=== PATIENT | male | born 1970 | race Caucasian/White ===

== ENCOUNTER 2024-06-29 08:43 | Emergency (ER) | payer BC, SELFPAY ==
[2024-06-29 09:02] VITALS: BP 113/78
--- NOTE | 2024-06-29 09:47 | ED.GENMED ---
History of Present Illness
General
Chief Complaint: Numbness
Source: patient
Exam Limitations: none
Time Seen by Provider: 06/29/24 09:38
History of Present Illness
History of Present Illness:
See MDM
Past History
Past History
ED Past Medical History: None
ED Past Surgical History: Cardiac
Social History
Tobacco: Non-smoker
Alcohol: Other
Living: with family
Phy Exam
Physical Exam
Physical Exam:
See MDM
Scores
NIH Stroke Score
Level of Consciousness: 0 - Alert
LOC Questions: 0-Answers both correctly
LOC Commands: 0-Performs both correctly
Best Horizontal Gaze: 0-Normal
Visual Moreno: 0=Normal, no visual loss
Facial Palsy: 0=Normal, symmetrical
Motor - Right Arm: 0=No drift 10 seconds
Motor - Left Arm: 0=No drift 10 seconds
Motor - Right Le-No drift 5 seconds
Motor - Left Le-No drift 5 seconds
Limb Ataxia: 0-Absent
Sensation: 0-Normal
Best Language: 0-No aphasia
Dysarthria: 0-Normal
Extinction and Inattention: 0-No abnormality
Total Score:: 0
Course
Orders/Labs/Results
Orders:
Orders
06/29/24 09:[address] [CT Head W/o Iv Contrast] Urgent
Comment:
Reason For Exam: unilateral numbness
06/29/24 09:46
Electrocardiogram (*1) Urgent
Reason for Study: Vertigo / Dizzy
EKG- Treatment ONCE
06/29/24 10:03
Complete Blood Count/With Diff Urgent
Comprehensive Metabolic Panel Urgent
Troponin I Urgent
Abnormal Lab Results
06/29/24
10:03
Glucose 102 H mg/dl
(70-99)
06/29/24 10:03
06/29/24 10:03
Vital Signs
Initial and Last Documented VS:
Initial Vital Signs
Temp Pulse Resp BP Pulse Ox
98.7 F 88 18 113/78 97
06/29/24 09:02 06/29/24 09:02 06/29/24 09:02 06/29/24 09:02 06/29/24 09:02
Last Documented Vital Signs
Temp Pulse Resp BP Pulse Ox
98.7 F 80 14 121/77 98
06/29/24 09:02 06/29/24 10:45 06/29/24 10:45 06/29/24 10:18 06/29/24 10:45
MDM/Problems Addressed
Differential Diagnosis Includes:
HPI and MDM Narrative:
53-year-old male presenting for evaluation of strokelike symptoms. Patient has been developing intermittent left arm tingling that is localized to his pinky and ring finger. He has been dealing with a headache for the past few days and got dizzy
today when he was walking the dog. Based on his symptoms, his PCP sent him in for evaluation of stroke. On my exam, his NIH is 0. He has normal finger-nose bilaterally. We discussed that his symptoms are less likely stroke related but he does
have strong family history of strokes. Patient does this the tingling in his hand. He states he developed intermittent tingling ever since his mitral valve repair 8 months ago. The numbness is likely related to his ulnar nerve given the
distribution. He has had an ulnar nerve release in his left elbow in the past
Physical exam
General: Well appearing and non-toxic
HEENT: protecting airway. EOMI
Neck: appears supple
CV: No evidence of cyanosis. Regular rate and rhythm
Resp: No accessory muscle use
Abd: Non-distended
Extremities: No deformities
Neuro: alert. No focal deficits. Normal finger-nose
Psych: Normal affect
Skin: Intact
Problems Addressed including Acute and Chronic Conditions affecting care:
1. Strokelike symptoms
Acuity: acute
Prognosis: stable
Details: Given his history, will obtain CT head. Will obtain basic blood work EKG. Patient does acknowledge that CT head does not necessarily rule out stroke. We discussed outpatient MRI if his workup is negative
Updates
Blood work and CT head negative. Patient feeling better after Toradol. We discussed continuing the workup as an outpatient and discussed follow-up with PCP as she may want to obtain MRI
Differential Diagnosis (but not limited to): TIA, migraine
Testing considered: CT angiogram
Drug therapy (if applicable): OTC meds, please see d/c instruction regarding Rx drugs
Amount and/or Complexity of Data Reviewed
Clinical info obtained from: Patient
External data reviewed: N/A
Labs I independently reviewed (but not limited to): Troponin normal
Radiology: The CT scan was personally and independently reviewed. In addition, official CT report reviewed.
Pulse Ox: not hypoxic
EKG independently reviewed: Sinus rhythm, normal axis, no STEMI
Truck Safety Inspector: N/A
Critical Care: N/A
Risk of Complication:
Social Determinants of health: Good social support
Discussed with other providers: N/A
Escalation of Care includes Admit/Obs: After being observed in the Emergency Department, pt stable for discharge.
Occasional wrong word or 'sound a like' substitutions may have occurred due to the inherent limitations of voice recognition software. Read the chart carefully and recognize, using context, where substitutions have occurred.
*Critical Care Note
Total Time (30-74mins, 75-104mins- exclusive of procedures): Not Applicable
ED Attending Note
-
Portions of this chart may have been created with voice recognition software.� Occasional wrong word or��sound alike� substitutions may have occurred due to the inherent limitations of voice recognition software.
Discharge Plan
Departure
Patient Disposition: Home (Routine Discharge)
Date of Disposition: 06/29/24
Time of Disposition: 11:24
Patient with high blood pressure during this ER visit?: No
Discharge Problem:
Dizziness
Referrals:
Ghazala Cortez MD [Family Provider] -
Activity Restrictions/Additional Instructions:
Please return for any worsening symptoms.
You may return at any time if you have further concerns.
Please follow up with your doctor at the first available appointment, preferably this week. Although there is no evidence of a stroke on the CT scan, and MRI is more sensitive. Please have this discussion with your primary care doctor.
Thank you for choosing [facility].
Interventions
Interventions:
*Risk Screen - Suicide Last Done: 06/29/24 09:02
*General Assessment Last Done: 06/29/24 09:02
*Neglect/Abuse Screening Last Done: 06/29/24 09:02
*ED- Fall Risk Assessment Last Done: 06/29/24 09:49
*ED COVID-19 Vaccine History Last Done: 06/29/24 09:49
ED- Neurological Assessment Last Done: 06/29/24 09:49
Discharge Date and Time
Print Language: TELUGU
[2024-06-29 09:49] VITALS: BMI 25.7
[2024-06-29 10:13] LABS: % Basophils 0.6 % (0-2); % Eosinophils 1.6 % (0-6); % Immature Granulocytes 0.3 % (0-0.5); % Lymphocytes 23.6 % (20.5-51.1); % Monocytes 6.1 % (1.7-9.3); % Neutrophils 67.8 % (42.2-75.2); Absolute Eosinophils 0.1 10^3/uL (0-0.7); Absolute Lymphocytes 1.5 10^3/uL (1.2-3.4); Absolute Monocytes 0.4 10^3/uL (0.1-0.6); Absolute Neutrophils 4.3 10^3/uL (1.4-6.5); Hematocrit 46.6 % (39.0-52.0); Hemoglobin 16.1 g/dL (13.0-18.0); Mean Corp Hgb Conc. 34.5 g/dL (33.0-37.0); Mean Corpuscular Hgb 30.3 pg (27.0-31.0); Mean Corpuscular Volume 87.6 fL (80.0-94.0); Mean Platelet Volume 9.4 fL (7.4-10.4); Nucleated Red Blood Cells % 0 % (-); Platelet Count 204 10^3/uL (130-400); Red Blood Cell Count 5.32 10^6/uL (4.70-6.10); Red Cell Dist. Width 12.9 % (11.5-14.5); White Blood Cell Count 6.3 10^3/uL (4.8-10.8)
[2024-06-29 10:18] VITALS: BP 121/77
[2024-06-29 10:29] LABS: ALT (SGPT) 34 U/L (0-50); AST (SGOT) 25 U/L (17-59); Albumin 4.2 g/dl (3.5-5.0); Alkaline Phosphatase 94 U/L (38-126); Blood Urea Nitrogen 17 mg/dl (9-20); Carbon Dioxide 28 mmol/L (22-30); Chloride 105 mmol/L (98-107); Estimated Creatinine Clearance 110 ml/min; Glucose 102 mg/dl (70-99); Potassium 4.5 mmol/L (3.5-5.1); Sodium 139 mmol/L (135-145); Total Bilirubin 0.9 mg/dl (0.2-1.3); Total Protein 6.8 g/dl (6.3-8.2); eGFR > 60.00
[2024-06-29 10:49] LABS: Troponin I < 0.012 ng/ml
[2024-06-29 11:00] VITALS: BP 126/81
== END 2024-06-29 11:40 | disposition home or self-care (01) ==
LOC: EMR 08:43
PROVIDERS: EMERGENCY PHYSICIAN Student in an Organized Health Care Education/Training Program; FAMILY PHYSICIAN Family Medicine
DX: R42 Dizziness and giddiness (principal); R20.0 Anesthesia of skin; Z98.890 Other specified postprocedural states; Z82.3 Family history of stroke
CPT/HCPCS: 99284; 70450; 80053; 84484; 85025; 93005

== ENCOUNTER → 2024-07-26 07:14 | Outpatient (REF) | payer BC, SELFPAY | LOC: MRI 07:14 | PROVIDERS: ATTENDING PHYSICIAN Nurse Practitioner Adult Health | DX: G43.109 Migraine with aura, not intractable, without status migrainosus (principal) | CPT/HCPCS: 70551 ==